=== PATIENT | male | born 1995 | race Caucasian/White ===

== ENCOUNTER 2018-11-20 17:00 | Emergency (ER) | payer OTHER ==
[~2018-11-20] VITALS: Ht 177.8 cm; Wt 69.1 kg
[2018-11-20 17:37] VITALS: TEMP 99.1
[2018-11-20] MEDS ORDERED: PROPECIA1 MG PO (17:59)
[2018-11-20] MEDS ORDERED: ALLEGRA ALLERGY60 MG (18:00)
[2018-11-20 20:32] LABS: COLLECTION METHOD CLEAN CATCH
[2018-11-20 20:41] LABS: PH 7 (5-8); SQUAMOUS EPITHELIAL None Seen /hpf; URINE APPEARANCE Clear; URINE BACTERIA None Seen /hpf; URINE BILIRUBIN Negative (NEGATIVE); URINE BLOOD Negative (NEGATIVE); URINE COLOR Straw; URINE GLUCOSE Negative (NEGATIVE); URINE KETONE Negative (NEGATIVE); URINE LEUKOCYTE ESTERASE Negative (NEGATIVE); URINE NITRATE Negative (NEGATIVE); URINE PROTEIN(semi-quant) Negative (NEGATIVE); URINE RBC 0-2 /hpf; URINE UROBILINOGEN Negative (NEGATIVE)
[2018-11-20] MEDS ORDERED: LEVAQUIN 5500 MG/TA1 PO (20:56)
[2018-11-20 21:07] VITALS: BP 133/75; PULSE 71
== END 2018-11-20 21:10 | disposition home or self-care (01) ==
LOC: COL.ER 17:00
PROVIDERS: Physician Assistant
DX: N45.2 Orchitis (principal)